=== PATIENT | female | born 1990 | race Caucasian/White ===

== ENCOUNTER 2025-05-02 12:40 | Outpatient (REF) | payer BC, SELFPAY ==
--- NOTE | 2025-05-02 12:20 | PAPFT_PTH ---
PATIENT: Juliana Marshall LOC: [facility] U#:[id number] AGE/SX: 34/F ROOM: RE05/02/[address]: Leslie Coronado : 1990 BED: DIS: 05/02/2025 SPEC #: [id number] RECD: 05/03/25 13:02 STATUS: ARABELLA REUriel #: [id number] KAVON: 05/02/25 12:[address]: Leslie Coronado DEPT: [facility] Cytology RECD BY: Angie Joy Tissues: 1 - CX/ENDOCX FOR PAP SMEARS Procedures: PAP THIN PREP/[facility] Screening HPV DNA PROBE Comments: [id number] (HPV 16 & 18/45)
[2025-05-02 21:08] LABS: Hemoglobin A1C 5.0 % (<5.7)
[2025-05-02 21:10] LABS: Cholesterol 191 mg/dL (<200); HDL Cholesterol 67 mg/dL (>40)
== END 2025-05-02 12:41 | disposition home or self-care (01) ==
LOC: NCHCN 12:40
PROVIDERS: PCP Family Medicine; Visit Provider Family Medicine
DX: Z13.220 Encounter for screening for lipoid disorders (principal); Z13.6 Encounter for screening for cardiovascular disorders; Z13.1 Encounter for screening for diabetes mellitus; Z12.4 Encounter for screening for malignant neoplasm of cervix
CPT/HCPCS: 80061; 88142; 83036; 87624